=== PATIENT | male | born 1950 | race Caucasian/White ===

== ENCOUNTER 2022-09-12 09:50 | Emergency (ER) | payer OTHER, MEDICAID ==
[~2022-09-12] VITALS: Ht 175.3 cm; Wt 100.2 kg
[2022-09-12 10:02] VITALS: BP 132/90; PULSE 76; RESP 20; TEMP 98; O2SAT 100
[2022-09-12 10:14] VITALS: O2SAT 99
--- NOTE | 2022-09-12 10:18 | NUR ---
JOSEY WINTERS AT BEDSIDE FOR EVALUATION
[2022-09-12] MEDS ORDERED: oxyCODONE/APAP 5/325 MG 1 TAB TAB PO ONE (10:25)
[2022-09-12 11:07] VITALS: BP 132/88; PULSE 62; RESP 16; O2SAT 99
--- NOTE | 2022-09-12 11:11 | NUR ---
UNABLE TO REASSESS DT PATIENT DC AT 1110
--- NOTE | 2022-09-12 11:14 | NUR ---
The patient's care was reviewed and supervised by [facility], RN.
== END 2022-09-12 11:14 | disposition home or self-care (01) ==
LOC: MED 09:50
DX: M54.50 Low back pain, unspecified (principal); G89.29 Other chronic pain; Z88.1 Allergy status to other antibiotic agents; Z88.8 Allergy status to other drugs, medicaments and biological substances; Z98.890 Other specified postprocedural states
CPT/HCPCS: 99283

== ENCOUNTER 2022-10-14 16:53 | Emergency (ER) | payer OTHER, MEDICAID ==
[~2022-10-14] VITALS: Ht 175.3 cm; Wt 99.3 kg
[2022-10-14 17:06] VITALS: BP 158/94; PULSE 90; RESP 20; TEMP 97.6; O2SAT 99
[2022-10-14] MEDS: MORPHINE SULFATE 4 MG/ML SYR IM ONE ×2 (17:48→17:54)
[2022-10-14 17:55] VITALS: BP 158/94; PULSE 90; RESP 20; TEMP 97.6; O2SAT 99
== END 2022-10-14 17:55 | disposition home or self-care (01) ==
LOC: MED 16:53
DX: M54.50 Low back pain, unspecified (principal); I10 Essential (primary) hypertension; F17.200 Nicotine dependence, unspecified, uncomplicated; Z88.8 Allergy status to other drugs, medicaments and biological substances; Z79.899 Other long term (current) drug therapy
CPT/HCPCS: 96372; 99283; J2270

== ENCOUNTER 2022-12-16 13:06 | Emergency (ER) | payer OTHER, MEDICAID ==
[~2022-12-16] VITALS: Ht 175.3 cm; Wt 98.0 kg
[2022-12-16 13:26] VITALS: BP 147/80; PULSE 76; RESP 19; TEMP 98; O2SAT 97
[2022-12-16] MEDS ORDERED: HYDR-5191 PO (15:40)
[2022-12-16] MEDS ORDERED: HYDROcodone/APAP 10/325 MG 1 TAB TAB PO STA (15:51)
[2022-12-17] MEDS ORDERED: HYDR-5191 PO (08:38)
== END 2022-12-16 16:10 | disposition home or self-care (01) ==
LOC: MED 13:06
DX: M54.50 Low back pain, unspecified (principal); M54.6 Pain in thoracic spine; Z76.0 Encounter for issue of repeat prescription; I10 Essential (primary) hypertension; Z98.890 Other specified postprocedural states; Z88.1 Allergy status to other antibiotic agents; Z88.8 Allergy status to other drugs, medicaments and biological substances
CPT/HCPCS: 99281

== ENCOUNTER 2022-12-17 07:59 | Emergency (ER) | payer OTHER, MEDICAID ==
[~2022-12-17] VITALS: Ht 175.3 cm; Wt 98.0 kg
[~2022-12-17 07:59] MED LIST: HYDR-5191 PO
[2022-12-17 08:08] VITALS: BP 138/94; PULSE 66; RESP 67; TEMP 97.6; O2SAT 98
[2022-12-17] MEDS ORDERED: HYDROcodone/APAP 10/325 MG 1 TAB TAB PO ONE (08:35)
[2022-12-17] MEDS ORDERED: HYDR-5191 PO (08:38)
[2022-12-17 09:06] VITALS: BP 138/94; PULSE 66; RESP 67; TEMP 97.6; O2SAT 98
== END 2022-12-17 09:07 | disposition home or self-care (01) ==
LOC: MED 07:59
DX: G89.29 Other chronic pain (principal); M54.6 Pain in thoracic spine; Z76.0 Encounter for issue of repeat prescription; I10 Essential (primary) hypertension; Z79.899 Other long term (current) drug therapy; Z98.890 Other specified postprocedural states; Z88.1 Allergy status to other antibiotic agents; Z88.8 Allergy status to other drugs, medicaments and biological substances
CPT/HCPCS: 99281

== ENCOUNTER 2023-01-12 09:55 | Emergency (ER) | payer OTHER, MEDICAID ==
[~2023-01-12] VITALS: Ht 175.3 cm; Wt 96.6 kg
[2023-01-12 10:02] VITALS: BP 155/89; PULSE 89; RESP 18; TEMP 97.8; O2SAT 99
[2023-01-12] MEDS ORDERED: LIDOCAINE 4% PATCH 1 EA PATCH TP ONE (10:50)
[2023-01-12] MEDS ORDERED: KETOROLAC 30 MG/ML VIAL IM ONE (10:50)
[2023-01-12] MEDS ORDERED: MORPHINE SULFATE 4 MG/ML SYR IM ONE (14:40)
[2023-01-12 16:19] LABS: BASOPHILS # (AUTO) 0.1 K/uL (0.00-0.22); BASOPHILS % (AUTO) 0.9 % (0.0-2.0); EOSINOPHILS % (AUTO) 0.1 % (0.0-4.0); HEMATOCRIT 36.2 % (36-52); HEMOGLOBIN 12.1 g/dL (12.0-18.0); LYMPHOCYTES % (AUTO) 28.7 % (20.5-51.1); MEAN CORPUSCULAR HEMOGLOBIN 30 pg (27-31); MEAN CORPUSCULAR HGB CONC 33 g/dL (33-37); MEAN CORPUSCULAR VOLUME 90.4 fL (80-94); MONOCYTES # (AUTO) 0.7 K/uL (0.8-1.0); MONOCYTES % (AUTO) 9.6 % (1.7-9.3); NEUTROPHILS # (AUTO) 4.2 K/uL (1.8-7.7); NEUTROPHILS % (AUTO) 60.7 % (42.2-75.2); PLATELET COUNT (AUTO) 253 K/uL (140-450); RED BLOOD CELL COUNT(AUTO) 4.01 MIL/uL (4.20-6.10); RED CELL DISTRIBUTION WIDTH 15.5 % (11.6-13.7)
[2023-01-12 16:52] LABS: ALBUMIN 3.9 g/dL (3.4-5.0); ANION GAP 11.9 (8-16); CALCIUM 9.3 mg/dL (8.5-10.1); CARBON DIOXIDE 27.3 mmol/L (21-32); CREATININE 0.8 mg/dL (0.6-1.3); POTASSIUM 4.2 mmol/L (3.5-5.1); TOTAL BILIRUBIN 0.2 mg/dL (0.0-1.0); TOTAL PROTEIN, SERUM 7.5 g/dL (6.4-8.2)
[2023-01-12] MEDS ORDERED: HYDROcodone/APAP 5/325 MG 1 TAB TAB PO ONE (20:20)
[2023-01-12 20:30] VITALS: O2SAT 99
[2023-01-12] MEDS ORDERED: HYDROcodone/APAP 10/325 MG 1 TAB TAB PO PRN (22:10)
[2023-01-13] MEDS ORDERED: MORPHINE SULFATE 4 MG/ML SYR IM ONE (00:20)
[2023-01-13] MEDS ORDERED: oxyCODONE/APAP 5/325 MG 1 TAB TAB PO ONE (05:05)
== END 2023-01-13 05:26 | disposition home or self-care (01) ==
LOC: MED 09:55
DX: S09.90XA Unspecified injury of head, initial encounter (principal); G89.29 Other chronic pain; M54.50 Low back pain, unspecified; M54.6 Pain in thoracic spine; J45.909 Unspecified asthma, uncomplicated; I10 Essential (primary) hypertension; Z87.39 Personal history of other diseases of the musculoskeletal system and connective tissue; Z86.79 Personal history of other diseases of the circulatory system; Z98.890 Other specified postprocedural states; Z79.899 Other long term (current) drug therapy; Z88.1 Allergy status to other antibiotic agents; Z88.8 Allergy status to other drugs, medicaments and biological substances; W18.39XA Other fall on same level, initial encounter; Y92.89 Other specified places as the place of occurrence of the external cause; Y93.89 Activity, other specified; Y99.8 Other external cause status
CPT/HCPCS: 36415; 70450; 72131; 80053; 85025; 85651; 86140; 96372; 99285; J1885; J2270

== ENCOUNTER 2023-02-20 13:17 | Emergency (ER) | payer OTHER, MEDICAID ==
[~2023-02-20] VITALS: Ht 172.7 cm; Wt 102.5 kg
[2023-02-20 13:30] VITALS: BP 153/85; PULSE 68; RESP 16; TEMP 98; O2SAT 98
[2023-02-20] MEDS ORDERED: KETOROLAC 30 MG/ML VIAL IM ONE (15:40)
[2023-02-20] MEDS ORDERED: MORPHINE SULFATE 4 MG/ML SYR IM ONE (15:40)
== END 2023-02-20 16:12 | disposition home or self-care (01) ==
LOC: MED 13:17
DX: M54.31 Sciatica, right side (principal); J45.909 Unspecified asthma, uncomplicated; I10 Essential (primary) hypertension; Z88.8 Allergy status to other drugs, medicaments and biological substances; Z79.899 Other long term (current) drug therapy
CPT/HCPCS: 93971; 96372; 99285; J1885; J2270; Q0092

== ENCOUNTER 2023-05-18 09:27 | Emergency (ER) | payer OTHER, MEDICAID ==
[~2023-05-18] VITALS: Ht 175.3 cm; Wt 100.2 kg
[2023-05-18 09:45] VITALS: BP 128/69; PULSE 73; RESP 18; TEMP 98.9; O2SAT 98
[2023-05-18 10:15] VITALS: O2SAT 98
[2023-05-18] MEDS: HYDROcodone/APAP 5/325 MG 1 TAB TAB PO ONE ×2 (10:49→12:02)
[2023-05-18 12:08] VITALS: BP 128/69; PULSE 73; RESP 18; TEMP 98.9; O2SAT 98
== END 2023-05-18 12:09 | disposition home or self-care (01) ==
LOC: MED 09:27
DX: S30.0XXA Contusion of lower back and pelvis, initial encounter (principal); J45.909 Unspecified asthma, uncomplicated; I10 Essential (primary) hypertension; Z79.1 Long term (current) use of non-steroidal anti-inflammatories (NSAID); Z88.1 Allergy status to other antibiotic agents; W18.39XA Other fall on same level, initial encounter; Y93.89 Activity, other specified; Y92.89 Other specified places as the place of occurrence of the external cause; Y99.8 Other external cause status
CPT/HCPCS: 72072; 72100; 72170; 99284

== ENCOUNTER 2023-08-13 09:41 | Emergency (ER) | payer OTHER, MEDICAID ==
[~2023-08-13] VITALS: Ht 175.3 cm; Wt 85.7 kg
[~2023-08-13 09:41] MED LIST changes: +HYDR-5071 PO; -HYDR-5191 PO
[2023-08-13 09:52] VITALS: BP 126/80; PULSE 78; RESP 18; TEMP 97.7; O2SAT 98
[2023-08-13] MEDS: MORPHINE SULFATE 4 MG/ML SYR IM ONE ×2 (11:16→12:12)
[2023-08-13 12:46] VITALS: BP 115/74; PULSE 69; RESP 12; TEMP 98.6; O2SAT 98
== END 2023-08-13 12:47 | disposition home or self-care (01) ==
LOC: MED 09:41
DX: M79.661 Pain in right lower leg (principal); I10 Essential (primary) hypertension; J45.909 Unspecified asthma, uncomplicated; Z86.718 Personal history of other venous thrombosis and embolism; Z79.899 Other long term (current) drug therapy; Z88.8 Allergy status to other drugs, medicaments and biological substances; Z88.0 Allergy status to penicillin
CPT/HCPCS: 93971; 96372; 99285; J2270; Q0092

== ENCOUNTER 2023-08-26 19:09 | Emergency (ER) | payer OTHER, MEDICAID ==
[~2023-08-26] VITALS: Ht 175.3 cm; Wt 89.8 kg
[2023-08-26 19:42] VITALS: BP 114/72; PULSE 75; RESP 16; TEMP 97.1; O2SAT 99
[2023-08-26] MEDS: MORPHINE SULFATE 4 MG/ML SYR IM ONE (20:55)
[2023-08-26] MEDS ORDERED: IBUP-2213 PO (21:11)
[2023-08-26 21:30] VITALS: BP 112/67; PULSE 77; RESP 18; TEMP 97.8; O2SAT 95
== END 2023-08-26 21:30 | disposition home or self-care (01) ==
LOC: MED 19:09
DX: M25.511 Pain in right shoulder (principal); J45.909 Unspecified asthma, uncomplicated; I10 Essential (primary) hypertension; Z98.890 Other specified postprocedural states; Z79.1 Long term (current) use of non-steroidal anti-inflammatories (NSAID); Z88.1 Allergy status to other antibiotic agents; Z88.8 Allergy status to other drugs, medicaments and biological substances
CPT/HCPCS: 73030; 96372; 99283; J2270

== ENCOUNTER 2023-09-19 10:50 | Emergency (ER) | payer OTHER, MEDICAID ==
[~2023-09-19] VITALS: Ht 175.3 cm; Wt 89.9 kg
[~2023-09-19 10:50] MED LIST changes: +IBUP-2213 PO
[2023-09-19 10:53] VITALS: BP 133/108; PULSE 78; RESP 15; TEMP 97.8; O2SAT 97
[2023-09-19] MEDS ORDERED: ALBUTEROL 0.083% 2.5 MG/3 ML NEBU INH ONE (11:28)
[2023-09-19] MEDS: HYDROcodone/APAP 5/325 MG 1 TAB TAB PO ONE (11:31)
[2023-09-19] MEDS: LIDOCAINE 5% 1 EA PATCH TP ONE (11:33)
[2023-09-19] MEDS: ALBUTEROL 0.083% 2.5 MG/3 ML NEBU INH ONE (11:38)
[2023-09-19 11:43] VITALS: PULSE 55; RESP 18; O2SAT 100
[2023-09-19 11:46] VITALS: PULSE 55; RESP 14; O2SAT 100
[2023-09-19] MEDS ORDERED: LIDO-120 TP (12:54)
[2023-09-19] MEDS ORDERED: HYDR-5071 PO (12:54)
[2023-09-19] MEDS ORDERED: IBUP-2218 PO (12:54)
== END 2023-09-19 13:34 | disposition home or self-care (01) ==
LOC: MED 10:50
DX: J45.909 Unspecified asthma, uncomplicated (principal); G89.29 Other chronic pain; Z87.81 Personal history of (healed) traumatic fracture; I10 Essential (primary) hypertension; Z79.899 Other long term (current) drug therapy; Z88.1 Allergy status to other antibiotic agents; Z88.8 Allergy status to other drugs, medicaments and biological substances
CPT/HCPCS: 71046; 94640; 99283; J7613

== ENCOUNTER 2023-11-13 13:39 | Emergency (ER) | payer OTHER, MEDICAID ==
[~2023-11-13] VITALS: Ht 175.3 cm; Wt 89.8 kg
[~2023-11-13 13:39] MED LIST changes: +IBUP-2218 PO; +LIDO-120 TP
[2023-11-13 14:02] VITALS: BP 134/80; PULSE 75; RESP 18; TEMP 98.1; O2SAT 97
[2023-11-13] MEDS: MORPHINE SULFATE 4 MG/ML SYR IM ONE (15:30)
[2023-11-13] MEDS ORDERED: CARI350T PO (15:34)
[2023-11-13 16:05] VITALS: BP 134/80; PULSE 75; RESP 18; TEMP 36.72516; O2SAT 97
== END 2023-11-13 16:06 | disposition home or self-care (01) ==
LOC: MED 13:39
DX: M79.604 Pain in right leg (principal); R60.0 Localized edema; J45.909 Unspecified asthma, uncomplicated; I10 Essential (primary) hypertension; Z79.899 Other long term (current) drug therapy; Z88.1 Allergy status to other antibiotic agents; Z88.8 Allergy status to other drugs, medicaments and biological substances; Z86.718 Personal history of other venous thrombosis and embolism
CPT/HCPCS: 93971; 96372; 99285; J2270; Q0092